=== PATIENT | male | born 1955 | race Hispanic/Latino ===

== ENCOUNTER 2017-08-26 13:45 | Inpatient (IN) | payer BC ==
[2017-08-26] MEDS ORDERED: Acetaminophen 500 MG TAB ONE (14:22)
--- NOTE | 2017-08-26 14:26 | RAD ---
EXAM: ONE VIEW CHEST: COMPARISON: 07/04/06. HISTORY: Fever, chills, and rigors. FINDINGS: Normal cardiac silhouette. The pulmonary vessels and hilum are normal. No mass. No consolidation. No pneumothorax or osseous abnormalities. IMPRESSION: No acute cardiopulmonary process. POS: [facility]
[2017-08-26 14:31] LABS: #Eosinphils 0.1 thou/uL (0.0-0.7); #Lymphocytes 1.4 thou/uL (1.20-3.40); #Monocytes 0.3 thou/uL (0.11-0.59); #Neutrophils 12.6 thou/uL (1.40-6.50); %Basophils 0.3 % (0.0-1.0); %Eosinophils 0.4 % (0.0-10.0); %Monocytes 2.1 % (0.0-10.0); Hematocrit 44.7 % (42.0-52.0); Mean Platelet Volume 8.3 fL (7.4-10.4); Red Blood Cell (RBC) Count 5.52 mill/uL (4.70-6.10); White Blood Cell (WBC) Count 14.4 thou/uL (4.8-10.8)
[2017-08-26 14:35] LABS: Bilirubin Negative (Negative); Blood, Urine Small (Negative); Glucose, Urine (Dipstick) 500 mg/dL (Negative); Ketone, Urine Negative (Negative); Nitrite Positive (Negative); Protein, Urine (Dipstick) Trace mg/dL (Neg-Trace); Urobilinogen 0.2 mg/dL (0.2-1.0)
[2017-08-26 14:49] LABS: Bacteria/HPF 4+ HPF (None Seen); Hyaline Casts/LPF 4-6 HYALINE CAST LPF (0-3 Hyaline); Squamous Epithelial None Seen HPF (0-3)
[2017-08-26 14:51] LABS: Lactic Acid - Sepsis 3.1 mmol/L (0.5-2.2)
[2017-08-26 14:55] LABS: ALT (SGPT) 21 U/L (8-55); AST (SGOT) 14 U/L (5-34); Alkaline Phosphatase 97 U/L (40-150); Anion Gap 15 mmol/L (10-20); BUN (Urea Nitrogen) 36 mg/dL (8.4-25.7); Bilirubin, Total 0.8 mg/dL (0.2-1.2); Calc. Creatinine Clearance 0 mL/min (70-130); Calcium 9.7 mg/dL (7.8-10.44); Carbon Dioxide 21 mmol/L (23-31); Chloride 101 mmol/L (98-107); Estimated GFR-MDRD 38; Globulin 4.7 g/dL (2.4-3.5); Lipase 98 U/L (8-78); Protein, Total 8.2 g/dL (5.8-8.1)
[2017-08-26] MEDS ORDERED: HYDROcodone/Acetaminophen 7.5/325 mg Tablet PO PRN (16:05)
[2017-08-26] MEDS ORDERED: Dextrose 5% in Water 1,000 ML IV PRN ×2 (16:05→16:10)
[2017-08-26] MEDS ORDERED: Dextrose 50% Abboject 50 ML SYRINGE SLOW IVP PRN ×2 (16:05→16:10)
[2017-08-26] MEDS ORDERED: Ondansetron HCl/PF 4 MG/2 ML Vial IVP PRN (16:05)
[2017-08-26] MEDS ORDERED: Zolpidem Tartrate 5 MG TAB PO PRN (16:05)
[2017-08-26] MEDS ORDERED: MORPHINE 10 MG/ML SYRINGE SLOW IVP PRN (16:09)
--- NOTE | 2017-08-26 16:48 | HP ---
PRIMARY CARE PROVIDER: Dr. Danyel Pereira; urologist, Dr. Gilmar Tran. [facility] for pyelonephritis. HISTORY OF PRESENT ILLNESS: The patient has seen Dr. Tran for the past 3 weeks. He has had some o ff and on blood in his urine pinkish color. He has a history of renal stones. He had a urine cultur e done. Two days ago, I have spoken with Dr. Tran, it is a pansensitive Klebsiella. He had a CT s can done yesterday which shows renal stones, but no renal stones in the ureters. For the past 12 yan rs, he has had fever, chills, sweats and left leg flank pain. He still has pinkish colored urine. H e states he has been feeling bad, been anorectic for 7 days. PAST MEDICAL HISTORY: Pertinent for hypertension, diabetes mellitus type 2, chronic kidney disease. CURRENT MEDICATIONS: Lisinopril 20 mg once a day, Janumet twice a day, potassium chloride 10 mEq twice a day, Trulicity 0.75 mg/0.5 mL weekly, Naprosyn 220 mg 2 b.i.d. ALLERGIES: None. PAST SURGICAL HISTORY: Lithotripsy 3 years ago. FAMILY HISTORY: Mother of cancer of the ovaries. Father of cancer of the lung. SOCIAL HISTORY: , at bedside. FULL CODE STATUS. is surrogate decision maker. Very occasional alcohol, no tobacco history. REVIEW OF SYSTEMS: GENERAL: A little lightheadedness and malaise for the past week. No true dizzin ess or fainting. EYES: No double vision, blurred vision, flashing lights. EAR, NOSE, AND THROAT: No ear pain or drainage. No nasal bleeding. No trouble swallowing. CARDIAC: No chest pain, orthop jordan or paroxysmal nocturnal dyspnea. RESPIRATIONS: Minimal shortness of breath, dry cough for 2 day s. No wheezing, asthma. GASTROINTESTINAL: No nausea, vomiting, diarrhea or constipation. No blood in his stools. GENITOURINARY: Mild dysuria, some hematuria gross. MUSCULOSKELETAL: No pain or sw elling in his arms or legs. NEUROLOGICAL: No strokes, seizures, focal weakness. PSYCHIATRIC: No a nxiety, depression. SKIN: No bruises, bleeding or rash. HEME/LYMPH: No tender or swollen lymph no jacque in axilla, inguinal or cervical area. PHYSICAL EXAMINATION: GENERAL: He is an alert, cooperative, pleasant gentleman in no distress at the present time. VITAL SIGNS: Temperature was 100 orally, room air sat was normal, blood pressure 111/67, pulse initi ally 132 down to 103 with fluids, and respirations 20-24. HEENT: Examination of his head, eyes, ears, nose, and throat reveal pupils equal, round, and reactiv e to light. Extraocular movements are intact. Sclerae white. Tympanic membranes clear. Nose is cl ear. Oral mucous membranes are wet. Throat is clear. NECK: Supple without jugular venous distention, adenopathy or thyromegaly. CHEST: Clear to auscultation and percussion. HEART: Had a regular rate and rhythm. First and second heart sounds are clear. There are no apprec iated murmurs or gallops. ABDOMEN: Soft, bowel sounds are normal. There is no hepatosplenomegaly, no mass, no rebound, no bru its. He did have some mild left flank tenderness to percussion. EXTREMITIES: Reveal no cyanosis, clubbing or edema. PULSES: Carotid, radial, femoral, and dorsalis pedis pulses intact. SKIN: Warm and dry without bruises or rash. HEME/LYMPH: No petechial or purpura lesions, no tender or swollen lymph nodes in axilla, inguinal or cervical area. NEUROLOGICAL: Cranial nerves II-XII are intact. Deep tendon reflexes symmetric. Moves all extremit ies. IMAGING AND LABORATORY DATA: Chest x-ray; no cardiomegaly, CHF or infiltrate reviewed by me. LABORATORY DATA: White count 14.4, hemoglobin 14.2, platelet count 226,000. He has an absolute neut rophilia with no bandemia. Urine too many to count white cells, 7-10 red cells, positive leukocyte e sterase and nitrite, small blood, sodium 132, potassium 5.0, CO2 21, BUN 36, creatinine 1.84, glucose 268 and 253, lactic acid positive at 3.1. ADMITTING DIAGNOSES: 1. Pyelonephritis. 2. Systemic inflammatory response syndrome. 3. Positive urine culture for Klebsiella pansensitive. 4. Lactic acidosis. 5. Nephrolithiasis. 6. Diabetes mellitus type 2. 7. Hypertension. 8. Chronic kidney disease stage 3. PLAN: 1. IV fluids. 2. Rocephin 2 grams IV q.24 hours. 3. Accu-Cheks and sliding scale. 4. Repeat lactic acid, BUN and creatinine, sodium and CBC in the morning. 5. Selected home medicines. 6. Avoid NSAIDs.
[2017-08-26 18:17] VITALS: BMI 34.4
[2017-08-26] MEDS: Sodium Chloride 0.9% 1,000 ML IV SCH (18:42)
[2017-08-26] MEDS: HumaLOG 300 UNITS/3 ML VIAL SC PRN (20:18)
[2017-08-27] MEDS: Acetaminophen 325 MG TAB PO PRN ×2 (00:27→19:35)
[2017-08-27] MEDS: Sodium Chloride 0.9% 1,000 ML IV SCH ×4 (01:13→18:20)
[2017-08-27 05:23] LABS: Anion Gap 10 mmol/L (10-20); BUN (Urea Nitrogen) 26 mg/dL (8.4-25.7); Calc. Creatinine Clearance 89 mL/min (70-130); Calcium 8.4 mg/dL (7.8-10.44); Carbon Dioxide 19 mmol/L (23-31); Chloride 109 mmol/L (98-107); Estimated GFR-MDRD 51
[2017-08-27 06:10] LABS: Band 5 % (5-11); Hematocrit 38.7 % (42.0-52.0); Neutrophil 79 % (42-75); Red Blood Cell (RBC) Count 4.76 mill/uL (4.70-6.10); White Blood Cell (WBC) Count 20.8 thou/uL (4.8-10.8)
--- NOTE | 2017-08-27 08:17 | CON ---
DATE OF CONSULTATION: 08/27/2017 HISTORY OF PRESENT ILLNESS: This is a 61-year-old Latin-Prydeinig male, who was admitted by the [facility] yesterday with febrile UTI/pyelonephritis. I had seen him in my office 3 days ago. A t that point, he had had a 6-7-day history of poor p.o. intake and decrease in appetite. No nausea o r vomiting. He had seen some gross hematuria and had noticed some increased urgency to urinate. At that point, he was having some mild left CVA tenderness. No fever, but did have a chill at home. Ny s urinalysis then showed some sugar and some blood, but no white cells and was negative for nitrites. Ordered a noncontrast CAT scan, which came back and was reviewed. He has some bilateral stones, bu t no ureteral calculi or hydronephrosis. He has some diverticulosis, but nothing to suggest divertic ulitis. Urine culture that was sent off that day had over 1,00,000 of Klebsiella pneumoniae. It was intermediately resistant to nitrofurantoin, and otherwise, was rivera sensitive across the board and at was done here at [facility]. His prior history is of urinary tract stones or uric acid stones. A bout 4 years ago, he had ESWL. He was admitted here. I think received vancomycin and Rocephin in e ER, talked with Dr. Banks, who admitted him and told him about the positive culture results. He is only on Rocephin now, which will cover this. Has not had a repeat scan done and does not need to. He is starting to feel better. He did not have any chills last night. He did not have a high temper ature last night. His white blood count is still elevated. His creatinine was 1.8 when he came in, and it is 1.4 now with a baseline one from a few years ago, I think, was 1.4 also. PAST MEDICAL HISTORY: Hypertension, diabetes, and some renal insufficiency. MEDICATIONS: Routine medicines are listed. ALLERGIES: He has no known drug allergies. PAST SURGICAL HISTORY: Not much in the way of surgical history apart from the ESWL, and I think a darya ne spur procedure. PHYSICAL EXAMINATION: ABDOMEN: His flanks are really nontender now, perhaps some slight discomfort on the left side. Abdo men is soft, obese, nontender. GENITOURINARY: Not circumcised, no phimosis, no lesions. Testicles descended without mass or tender ness. Rectal exam was not done this morning. IMPRESSION: 1. Pyelonephritis/febrile urinary tract infection with Klebsiella that is sensitive to antibiotic th at he is on. 2. Nonobstructing renal stones. 3. Uric acid stones. PLAN: At this time, would be to let him go home once he is clinically stable from the hospitalist st ward; go home on oral antibiotics, probably 10-14 days. I can see him the week after Cornelio griggs and I will get my office to set that visit up. He may want to consider shockwave therapy for the s tones that he has particularly, I think, on the right side. There was a decent size stone in the aureliano al pelvis. Otherwise, pretty small and it can probably be watched. This was discussed with the colten ent and his . All questions were answered.
--- NOTE | 2017-08-27 11:22 | PQF ---
DATE: 08-27-17 ATTN: DR. ISIDRO LEYVA Please exercise your independent, professional judgment in responding to the clarification form. Clinical indicators are provided on the bottom of this form for your review Please check appropriate box(s): [ X ] Sepsis due to: (UTI) [ ] Sepsis not due to ( UTI) [ ] Localized infection without sepsis [ ] Other diagnosis [ ] Unable to determine In addition, please specify: Present on Admission (POA): [ X ] Yes [ ] No [ ] Unable to determine For continuity of documentation, please document condition throughout progress notes and discharge summary. Thank You. CLINICAL INDICATORS - SIGNS / SYMPTOMS / LABS ER DIAGNOSIS: UROSEPSIS, DEHYDRATION H&P: PYELONEPHRITIS, SIRS, POSITIVE URINE CULTURE FOR KLEBSIELLA PANSENSITIVE , LACTIC ACIDOSIS ER DOCUMENTATION: FEVER, SUBJECTIVE, TEMP: 100.0 , TEMP ON 08-27-17: 100.1 WBC: 08-26-17: 14.4 08-27-17: 20.8 LACTIC ACID: 08-26-17: 3.1 RISK FACTORS: ER DIAGNOSIS: UROSEPSIS, DEHYDRATION CONSULT NOTE DR. APARICIO 08-26-17: HX OF ESWL, HX OF URINARY TRACT STONES, TREATMENTS: DAILY CBC (08-26-17) IVF (08-27-17) ROCEPHIN (This form is maintained as a part of the permanent medical record) 2014 [employer] All Rights Reserved [email or web address] [email or web address] Office: [phone] [facility]OSPITALDar[facility]
[2017-08-27] MEDS: HumaLOG 300 UNITS/3 ML VIAL SC PRN (11:25)
--- NOTE | 2017-08-27 15:37 | PDOC.PN ---
- Subjective Encounter Start Date: 08/27/17 Encounter Start Time: 15:35 Mr. Deutsch was seen today in follow-up of Pyelonephritis. He says he has a bit of a headache now, and doesn't feel as well now as he did this morning. He denies abdominal pain or nausea or vomiting. - Objective MAR Reviewed: Yes Vital Signs & Weight: Vital Signs (12 hours) Temp Pulse Resp BP BP Pulse Ox 08/27/17 11:29 98.4 F 83 16 168/86 H 96 08/27/17 08:00 98.1 F 81 18 149/81 H 96 08/27/17 04:00 98.2 F 73 18 124/71 97 Weight Admit Weight 254 lb 3 oz Weight 254 lb 3 oz I&O: 08/26/17 08/27/17 08/28/17 06:59 06:59 06:59 Intake Total 2507 Output Total 2049 Balance 457 Result Diagrams: 08/27/17 04:40 08/27/17 04:40 Additional Labs: Accuchecks 08/27/17 08/27/17 08/26/17 11:24 04:14 19:54 POC Glucose 221 H 188 H 321 H Phys Exam - Physical Examination HEENT: PERRLA Respiratory: no wheezing, no rales, no rhonchi, clear to auscultation bilateral Cardiovascular: RRR, no significant murmur Gastrointestinal: soft, non-tender, positive bowel sounds Musculoskeletal: no edema Dx/Plan (1) Pyelonephritis Code(s): N12 - TUBULO-INTERSTITIAL NEPHRITIS, NOT SPCF ACUTE OR CHRONIC Status: Acute (2) Nephrolithiasis Status: Acute (3) Diabetes mellitus type 2 in obese Code(s): E11.69 - TYPE 2 DIABETES MELLITUS WITH OTHER SPECIFIED COMPLICATION; E66.9 - OBESITY, UNSPECIFIED Status: Acute (4) Hypertension Code(s): I10 - ESSENTIAL (PRIMARY) HYPERTENSION Status: Acute - Plan * UTI and Pyelophritis- urine cultures from 08/24 are positive for Klebsiella which was Leija-sensitive. * Urine culture from this admission is still pending- most likely to be the same organism * Will keep in the hospital overnight to await cultures * HTN- re-start his blood pressure medication tomorrow, to allow adequate re- hydration * DM- blood glucose is elevated- re-start Januvia, and continue SSI
[2017-08-27] MEDS: cefTRIAXone\\ROCEPHIN 2 GM in Sodium Chloride 0.9% 100 ML IVPB SCH (15:53)
[2017-08-27] MEDS: Alogliptin Benzoate 6.25 MG TABLET PO SCH (16:48)
[2017-08-27] MEDS: metFORMIN 500 MG TAB PO SCH (16:49)
[2017-08-28] MEDS: Sodium Chloride 0.9% 1,000 ML IV SCH ×4 (04:18→20:49)
[2017-08-28 04:23] LABS: #Eosinphils 0.2 thou/uL (0.0-0.7); #Lymphocytes 2.4 thou/uL (1.20-3.40); #Monocytes 1.4 thou/uL (0.11-0.59); #Neutrophils 15.6 thou/uL (1.40-6.50); %Basophils 0.2 % (0.0-1.0); %Eosinophils 0.8 % (0.0-10.0); %Lymphocytes 12.2 % (21.0-51.0); %Monocytes 7.2 % (0.0-10.0); Hematocrit 39.1 % (42.0-52.0); Mean Platelet Volume 7.9 fL (7.4-10.4); White Blood Cell (WBC) Count 19.6 thou/uL (4.8-10.8)
[2017-08-28 04:41] LABS: Lactic Acid - Sepsis 1.6 mmol/L (0.5-2.2)
[2017-08-28] MEDS: metFORMIN 500 MG TAB PO SCH ×2 (07:58→16:56)
[2017-08-28] MEDS: Alogliptin Benzoate 6.25 MG TABLET PO SCH ×2 (07:58→16:55)
--- NOTE | 2017-08-28 09:09 | PDOC.PN ---
- Subjective Encounter Start Date: 08/28/17 Encounter Start Time: 09:07 Mr. Deutsch was seen today in follow-up of Pyelonephritis. He says he is feeling ok. He denies abdominal pain or nausea. - Objective MAR Reviewed: Yes Vital Signs & Weight: Vital Signs (12 hours) Temp Pulse Resp BP Pulse Ox 08/28/17 08:00 98.8 F 78 20 110/68 96 08/28/17 04:21 98.1 F 08/28/17 00:00 98.1 F 08/27/17 21:29 98.4 F Weight Admit Weight 254 lb 3 oz Weight 254 lb 3 oz I&O: 08/27/17 08/28/17 08/29/17 06:59 06:59 06:59 Intake Total 2506 2474 Output Total 2049 1999 Balance 457 108 Result Diagrams: 08/28/17 04:02 08/27/17 04:40 Additional Labs: Accuchecks 08/28/17 08/27/17 08/27/17 04:25 20:06 16:14 POC Glucose 161 H 218 H 259 H 08/27/17 11:24 POC Glucose 221 H Phys Exam - Physical Examination HEENT: PERRLA Respiratory: no wheezing, no rales, no rhonchi, clear to auscultation bilateral Cardiovascular: RRR, no significant murmur Gastrointestinal: soft, non-tender, positive bowel sounds Musculoskeletal: no edema Dx/Plan (1) Pyelonephritis Code(s): N12 - TUBULO-INTERSTITIAL NEPHRITIS, NOT SPCF ACUTE OR CHRONIC Status: Acute (2) Nephrolithiasis Status: Acute (3) Diabetes mellitus type 2 in obese Code(s): E11.69 - TYPE 2 DIABETES MELLITUS WITH OTHER SPECIFIED COMPLICATION; E66.9 - OBESITY, UNSPECIFIED Status: Acute (4) Hypertension Code(s): I10 - ESSENTIAL (PRIMARY) HYPERTENSION Status: Acute - Plan * Pyelonephritis- He had some fever yesterday evening, and his WBC count is still quit elevated * Will add Levaquin, and repeat the CBC in the AM and monitor his temp curve * HTN- will re-start Lisinopril * DM- blood glucose is slightly elevated but stable- continue Januvia/ Metformin and SSI
[2017-08-28] MEDS: Lisinopril 20 MG TAB PO SCH (09:59)
[2017-08-28] MEDS: cefTRIAXone\\ROCEPHIN 2 GM in Sodium Chloride 0.9% 100 ML IVPB SCH (15:01)
[2017-08-29] MEDS: Sodium Chloride 0.9% 1,000 ML IV SCH ×2 (02:17→08:19)
[2017-08-29 04:42] LABS: #Basophils 0.1 thou/uL (0.0-0.2); #Eosinphils 0.1 thou/uL (0.0-0.7); #Lymphocytes 2.1 thou/uL (1.20-3.40); #Monocytes 0.9 thou/uL (0.11-0.59); #Neutrophils 11.1 thou/uL (1.40-6.50); %Basophils 0.5 % (0.0-1.0); %Eosinophils 0.7 % (0.0-10.0); %Lymphocytes 14.4 % (21.0-51.0); %Monocytes 6.5 % (0.0-10.0); Hematocrit 35.1 % (42.0-52.0); Mean Platelet Volume 8.2 fL (7.4-10.4); White Blood Cell (WBC) Count 14.3 thou/uL (4.8-10.8)
[2017-08-29 04:46] LABS: Anion Gap 10 mmol/L (10-20); BUN (Urea Nitrogen) 16 mg/dL (8.4-25.7); Calc. Creatinine Clearance 105 mL/min (70-130); Calcium 8.4 mg/dL (7.8-10.44); Carbon Dioxide 18 mmol/L (23-31); Chloride 107 mmol/L (98-107); Estimated GFR-MDRD 62
[2017-08-29 04:52] VITALS: TEMP 98.1
--- NOTE | 2017-08-29 07:31 | PDOC.PN ---
- Subjective Encounter Start Date: 08/29/17 Encounter Start Time: 07:30 Mr. Deutsch was seen today in follow-up of Pyelonephritis. He does not have any complaints. He is feeling better. - Objective MAR Reviewed: Yes Vital Signs & Weight: Vital Signs (12 hours) Temp Pulse Resp BP Pulse Ox 08/29/17 04:51 98.1 F 08/29/17 02:21 98.3 F 08/29/17 00:50 99.6 F 08/28/17 20:00 98.4 F 93 18 126/74 97 Weight Admit Weight 254 lb 3 oz Weight 254 lb 3 oz I&O: 08/28/17 08/29/17 08/30/17 06:59 06:59 06:59 Intake Total 2475 4700 Output Total 2000 1500 Balance 475 3200 Result Diagrams: 08/29/17 04:19 08/29/17 04:19 Additional Labs: Accuchecks 08/29/17 08/28/17 08/28/17 04:51 20:43 16:10 POC Glucose 173 H 202 H 175 H 08/28/17 10:54 POC Glucose 227 H Phys Exam - Physical Examination HEENT: PERRLA Respiratory: no wheezing, no rales, no rhonchi, clear to auscultation bilateral Cardiovascular: RRR, no significant murmur Gastrointestinal: soft, non-tender, positive bowel sounds Musculoskeletal: no edema Dx/Plan (1) Pyelonephritis Code(s): N12 - TUBULO-INTERSTITIAL NEPHRITIS, NOT SPCF ACUTE OR CHRONIC Status: Acute (2) Nephrolithiasis Status: Acute (3) Diabetes mellitus type 2 in obese Code(s): E11.69 - TYPE 2 DIABETES MELLITUS WITH OTHER SPECIFIED COMPLICATION; E66.9 - OBESITY, UNSPECIFIED Status: Acute (4) Hypertension Code(s): I10 - ESSENTIAL (PRIMARY) HYPERTENSION Status: Acute - Plan * Pyelonephritis- improving * Patient is stable for discharge home today on Levaquin..
--- NOTE | 2017-08-29 07:54 | DIS ---
DATE OF ADMISSION: 08/26/2017 DATE OF DISCHARGE: 08/29/2017 PRIMARY CARE PHYSICIAN: Danyel Pereira M.D. DISCHARGE DISPOSITION: Home. PRIMARY DISCHARGE DIAGNOSES: 1. Pyelonephritis. 2. Nephrolithiasis. 3. Hypertension. 4. Diabetes mellitus. 5. Obesity. DISCHARGE MEDICATIONS: Levaquin 500 mg p.o. daily for 10 days, Trulicity 0.75 mcg every 7 days, anna nopril 20 mg daily, Naprosyn 220 mg twice a day, potassium citrate 10 mg twice a day, and Janumet 50/ 1000 mg twice a day. CODE STATUS: FULL CODE. ALLERGIES: No known drug allergies. HOSPITAL COURSE: Mr. Deutsch is a pleasant 61-year-old gentleman who was admitted after experiencing some hematuria as well as subjective fever and chills and left flank pain. He was found to have pyel onephritis as well as some nonobstructing renal stones. He was seen by Dr. Tran in the hospital an d urine cultures grew Klebsiella, which was rivera sensitive. He was treated with Rocephin and then tra nsitioned to Levaquin and once he was afebrile for 24 hours and his white count was declining and his symptoms had resolved, he was able to be discharged home and to have close followup with Dr. Tran who will plan to deal with stones in the outpatient setting and also to follow up with his primary ca re physician in 1-2 weeks.
[2017-08-29] MEDS: Alogliptin Benzoate 6.25 MG TABLET PO SCH (07:56)
[2017-08-29] MEDS: metFORMIN 500 MG TAB PO SCH (07:57)
[2017-08-29] MEDS: Lisinopril 20 MG TAB PO SCH (07:57)
[2017-08-29 08:34] VITALS: BP 121/77
[2017-08-29] MEDS: cefTRIAXone\\ROCEPHIN 2 GM in Sodium Chloride 0.9% 100 ML IVPB SCH (13:00)
== END 2017-08-29 14:15 | disposition home or self-care (01) | DRG 872 ==
LOC: ERS 13:45 → T4-A 17:54
PROVIDERS: ADMIT Internal Medicine; ATTEND Internal Medicine
DX: A41.9 Sepsis, unspecified organism (principal); E87.2 Acidosis; E11.22 Type 2 diabetes mellitus with diabetic chronic kidney disease; N18.3 Chronic kidney disease, stage 3 (moderate); N10 Acute pyelonephritis; B96.1 Klebsiella pneumoniae [K. pneumoniae] as the cause of diseases classified elsewhere; N20.0 Calculus of kidney; I12.9 Hypertensive chronic kidney disease with stage 1 through stage 4 chronic kidney disease, or unspecified chronic kidney disease; Z79.4 Long term (current) use of insulin; E66.9 Obesity, unspecified; E86.0 Dehydration; Z68.34 Body mass index [BMI] 34.0-34.9, adult
CPT/HCPCS: 36415; 36416; 71010; 80048; 80053; 81003; 81015; 83605; 83690; 85025; 87040; 87077; 87086; 87186; 96361; 96365; 96368; J0696; J3370; J7050

== ENCOUNTER 2017-09-13 14:21 | Outpatient (CLI) | payer BC ==
[2017-09-13 16:14] LABS: Hematocrit 40.8 % (42.0-52.0); Mean Platelet Volume 8.2 fL (7.4-10.4); White Blood Cell (WBC) Count 6.7 thou/uL (4.8-10.8)
[2017-09-13 16:16] LABS: PTT 31.4 SEC (22.9-36.1); Prothrombin Time 13.6 SEC (12.0-14.7)
[2017-09-13 16:25] LABS: Anion Gap 15 mmol/L (10-20); BUN (Urea Nitrogen) 22 mg/dL (8.4-25.7); Calc. Creatinine Clearance 0 mL/min (70-130); Calcium 9.7 mg/dL (7.8-10.44); Carbon Dioxide 24 mmol/L (23-31); Chloride 102 mmol/L (98-107); Estimated GFR-MDRD 42
[2017-09-13 16:41] LABS: EPI Status Message No Message; Hematocrit 40.8 % (42.0-52.0)
--- NOTE | 2017-09-13 18:10 | EKG ---
Test Reason : Blood Pressure : / mmHG Vent. Rate : 061 BPM Atrial Rate : 061 BPM P-R Int : 152 ms QRS Dur : 088 ms QT Int : 394 ms P-R-T Axes : 021 -01 -08 degrees QTc Int : 396 ms Normal sinus rhythm Normal ECG When compared with ECG of 01-DEC-2016 07:28, No significant change was found Confirmed by BHAKTI ODELL ([id number]) on 09/13/2017 6:09:56 PM Referred By: RAFFY Confirmed By:BHAKTI ODELL
== END 2017-09-13 14:22 | disposition home or self-care (01) ==
LOC: LABBT 14:21
PROVIDERS: ATTEND Urology
DX: Z01.812 Encounter for preprocedural laboratory examination (principal); N20.0 Calculus of kidney
CPT/HCPCS: 80048; 85027; 85576; 85610; 85730; 93005; 93010

== ENCOUNTER 2017-09-15 07:30 | Day surgery (SDC) | payer BC ==
[2017-09-13 14:51] VITALS: BMI 34.4
--- NOTE | 2017-09-15 09:36 | RAD ---
RADIOGRAPH ABDOMEN 1 VIEW: DATE: 09/15/17. HISTORY: A 61-year-old male with right renal calculus. COMPARISON: CT of 08/25/2017 from [facility]. FINDINGS: There are 2 calcific densities at the lateral aspect of the right pelvis, which are ovoid, each measu ring approximately 6 x 4 mm, abutting each other, one superior to the other. These represent phlebol iths, as demonstrated on the CT of 08/25/2017. The calculus at the right renal pelvis on that prior CT is not visible on this KUB. Perhaps that is a uric acid stone. No other focal calcifications are visualized. Bowel gas pattern is normal. IMPRESSION: No calculus identified. POS: [facility]
[2017-09-15] MEDS ORDERED: Fentanyl 100 MCG/2 ML VIAL ONE (11:54)
[2017-09-15] MEDS ORDERED: cefTRIAXone\\ROCEPHIN 2 GM in Sodium Chloride 0.9% 100 ML IVPB ONE (12:00)
[2017-09-15] MEDS ORDERED: Iothalamate Meglumine 60% 50 ML VIAL FS ONE (12:20)
--- NOTE | 2017-09-15 14:32 | OP ---
DATE OF SURGERY: 09/15/2017 PREOPERATIVE DIAGNOSIS: Right renal pelvic stone, radiolucent. POSTOPERATIVE DIAGNOSIS: Right renal pelvic stone, radiolucent. PROCEDURE PERFORMED: Cystoscopy, right retrograde, right extracorporeal shock wave lithotripsy, righ t stent. SURGEON: Dr. Gilmar Tran ANESTHETIC: General. ESTIMATED BLOOD LOSS: Minimal. FINDINGS: There is over 1 cm size stone in the right renal pelvis and was radiolucent. DRAINS PLACED: 4.6 Salvadorean x 26 cm double-J stent with string attached. FINDINGS: There is a stone that was radiolucent but could easily be seen with the retrograde contras t that was over 1 cm in size that was treated with 2500 shocks at maximum kV level of 5. It appeared to fragment well. At the end of the procedure, because of the size of the stone, a stent was placed . OPERATIVE TECHNIQUE: After obtaining written and verbal consent from the patient after receiving IV Rocephin, he was taken to the operating suite. He was placed in the supine position on the treatment table. PlexiPulses were placed on his lower extremities and turned on. He was given a general anes thetic and oral obturator intubation. He was placed in the dorsal lithotomy position and sterilely p repped and draped. Cystoscopy was performed with a 22-Salvadorean sheath. This was well lubricated and p assed under direct vision through the male urethra into the urinary bladder with aid of a 30-degree l ens and video camera and monitor. The bladder was filled and emptied a number of times and examined with both 30 and 70-degree lens. No evidence of tumor, foreign body, or stone. He had a wide calibe r stricture of the bulb that was easily passed with the scope. The right ureteral orifice was cannul ated with a 5 Salvadorean Pollack catheter that had been flushed with contrast. It was placed up the uret er, contrast was injected, revealing a round filling defect over 1 cm in size in the renal pelvis. W e positioned the open-ended catheter just distal to the ureteropelvic junction, draining the bladder, removing the scope, passing a Danielson catheter, inflating the balloon and then securing the open-ended catheter. He was then returned to the supine position and we could inject contrast through the open -ended catheter. He was coupled to the lithotripter unit and the stone was placed in treatment focal point. Shockwave therapy was commenced. Fluoroscopy was used intermittently and contrast was reinj ected to the distal end of the open-ended catheter, it was necessary to outline the stone in its frag ments, it did appear to fragment well, although we could not see the size of any of the fragments per se, it certainly changed its configuration dramatically. Because of the size of the stone, we decid ed he would do best with the stent. After 2500 shocks, he was then returned to the dorsal lithotomy position, we sterilely prepped and draped. The guidewire was fed through the open-ended catheter and the open-ended catheter was discarded. The guidewire was backloaded through the cystoscope. We inj ected contrast through new open-ended catheter up to fill out the collecting system and then over the wire placed a stent, pushing up into place with aid of a pusher, so its proximal end coiled in the r enal pelvis and its distal end coiled in the bladder at the end of the procedure. There were a numbe r of filling defects in the renal pelvis. Some of them stone fragments, some of them blood clot. At this point, the bladder was drained, the instruments were removed. The string had been left planning aide d to distal end of the stent. He was awakened, extubated, and taken by sonyaer to the recovery shanna hancock
[2017-09-15] MEDS ORDERED: ePHEDrine/0.9% NaCl/PF SYRINGE 50 mg/10 ml ONE (15:27)
[2017-09-15] MEDS ORDERED: PHENYLEPHRINE-NS 100 MCG/ML 10 ML SYRINGE ONE (15:27)
[2017-09-15] MEDS ORDERED: Lidocaine 1% PF 5 ML VIAL ONE (15:27)
[2017-09-15] MEDS ORDERED: Dexamethasone 20 MG/5 ML VIAL ONE (15:27)
[2017-09-15] MEDS ORDERED: Propofol 200 MG/20 ML VIAL ONE (15:27)
[2017-09-15] MEDS ORDERED: Metoclopramide HCl 10 MG/2 ML VIAL ONE (15:27)
[2017-09-15] MEDS ORDERED: Ondansetron HCl/PF 4 MG/2 ML Vial ONE (15:27)
[2017-09-15] MEDS ORDERED: Acetaminophen/Codeine 30-300mg Tablet ONE (16:00)
== END 2017-09-15 16:45 | disposition home or self-care (01) ==
LOC: SDC 07:30
PROVIDERS: ATTEND Urology
PROC: 0T768DZ Dilation of Right Ureter with Intraluminal Device, Via Natural or Artificial Opening Endoscopic (ICD-10-PCS; principal; 2017-09-15)
PROC: 0TF3XZZ Fragmentation in Right Kidney Pelvis, External Approach (ICD-10-PCS; principal; 2017-09-15)
DX: N20.0 Calculus of kidney (principal)
CPT/HCPCS: 74000; C1758; J0131; J0696; J1100; J2001; J2405; J2704; J2765; J3010; J7050; Q9961

== ENCOUNTER 2020-03-18 06:03 | Outpatient (CLI) | payer BC, OTHER ==
[2020-03-18 18:11] LABS: Hemoglobin 15.6 g/dL (14.0-18.0); Mean Corpuscular HGB CONC 33.3 g/dL (32.0-36.0); Mean Corpuscular Hemoglobin 28.8 pg (27.0-31.0); Mean Corpuscular Volume 86.3 fL (78.0-98.0); Mean Platelet Volume 10.1 fL (7.4-10.4); Platelet Count 159 thou/uL (130-400); RBC Distribution Width 13.9 % (11.5-14.5); Red Blood Cell (RBC) Count 5.43 mill/uL (4.70-6.10); White Blood Cell (WBC) Count 7.3 thou/uL (4.8-10.8)
[2020-03-18 18:14] LABS: PTT 29.5 sec (22.9-36.1)
[2020-03-18 18:23] LABS: Anion Gap 13 mmol/L (10-20); BUN (Urea Nitrogen) 28 mg/dL (8.4-25.7); Calc. Creatinine Clearance 0 mL/min (70-130); Calcium 9.9 mg/dL (7.8-10.44); Carbon Dioxide 24 mmol/L (23-31); Chloride 106 mmol/L (98-107); Estimated GFR-MDRD 43; Glucose 126 mg/dL (80-115); Potassium 4.7 mmol/L (3.5-5.1); Sodium 138 mmol/L (136-145)
[2020-03-19 13:58] LABS: SARS-CoV-2 MS2 Positive; SARS-CoV-2 N Gene Negative; SARS-CoV-2 S Gene Negative; SARS-CoV-2 orf1ab Negative
[2020-03-20 06:40] LABS: Platelet Count 144 thou/uL (130-400)
[2020-03-20 06:58] LABS: EPI 113 SEC (67-199)
== END 2020-03-18 06:04 | disposition home or self-care (01) ==
LOC: LABBT 06:03
PROVIDERS: ATTEND Urology
DX: Z01.812 Encounter for preprocedural laboratory examination (principal); Z11.59 Encounter for screening for other viral diseases; N20.0 Calculus of kidney
CPT/HCPCS: 80048; 85027; 85576; 85610; 85730; 87635; U0003

== ENCOUNTER 2020-03-20 05:51 | Day surgery (SDC) | payer OTHER ==
[2020-03-18 14:32] VITALS: BMI 34.5
[2020-03-20] MEDS ORDERED: Iopamidol 50 ML FS ONE (06:33)
[2020-03-20] MEDS ORDERED: Fentanyl 100 MCG/2 ML VIAL ONE (06:48)
--- NOTE | 2020-03-20 09:53 | OP ---
DATE OF PROCEDURE: 03/20/2020 PREOPERATIVE DIAGNOSIS: Left renal stones (uric acid). POSTOPERATIVE DIAGNOSES: 1. Left renal stones (uric acid). 2. Urethral stricture disease, easily passed with a 22-Malaysian scope and a guidewire. PROCEDURES PERFORMED: 1. Cystoscopy. 2. Left retrograde pyelography. 3. Left extracorporeal shockwave lithotripsy. ANESTHETIC: General. ESTIMATED BLOOD LOSS: Not recorded. FINDINGS: He had 3 areas of filling defects, corresponding of a stone, seen on ultrasound, 1 in the upper maribeth, 1 in the mid calyx/renal pelvic region, 1 in the lower calyceal system. In the same order, they were treated with 1000 and 1500 shocks for a total of 2500 shocks at level 4. They did appear to fragment well based on how they broke up when we would reinject. Stent was not left indwelling. DESCRIPTION OF PROCEDURE: After obtaining written and verbal consent from the patient, after receiving IV antibiotics, after documenting normal preoperative blood work, he was taken to the operating suite. He was placed in the supine position on the treatment table. PlexiPulses were placed on his lower extremities and turned on. He was given a general anesthetic and oral intubation. He was placed in the dorsal lithotomy position. He was sterilely prepped and draped for the above procedure. The scope was passed through the male urethra, well lubricated. There were some areas of stricture along the anterior urethra, that were easily passed with the scope in the bulb. There was 1 that was short, but a little tighter, and a wire was fed across through this before passing the scope. There was a moderately enlarged prostate gland. The bladder showed no tumor, foreign body, or stone. The ureteral orifices in normal position. The guidewire was then fed up the left ureter a few centimeter and then a Pollack catheter advanced over this. The Pollack catheter was then advanced up to the region of the expected proximal ureter/renal pelvis and a C-arm was used to look at this area as we injected a small amount of contrast. Once we felt that this was in a good position in the area of the renal pelvis and then the bladder was drained. The instruments removed, leaving the stent in place. A 16-Malaysian Danielson catheter was then placed in and the balloon inflated and then the Pollack catheter was secured to it with a silk tie and contrast of 60 mL syringe was left attached to the Pollack catheter. He was returned to the supine position and he was positioned for shockwave lithotripsy and coupled to the lithotripsy unit. We started at the upper pole filling defect and treated this with 1000 shocks. Initially started at a low kV after couple 100 shocks, a 5-minute pause was given, then we increased the kV to level 4. We then repositioned for the 2nd 1000 shocks and then for the 3rd. At the end of the procedure, he had the Danielson catheter and the stent removed. He was awakened. He was extubated and taken by kei to recovery room. Job ID: [id number]
[2020-03-20] MEDS ORDERED: Dexamethasone 20 MG/5 ML VIAL ONE (10:41)
[2020-03-20] MEDS ORDERED: PHENYLEPHRINE-NS 100 MCG/ML 10 ML SYRINGE ONE (10:41)
[2020-03-20] MEDS ORDERED: Lidocaine 1% PF 5 ML VIAL ONE (10:41)
[2020-03-20] MEDS ORDERED: EPHEDRINE 25 MG/5 ML SYRINGE ONE (10:41)
[2020-03-20] MEDS ORDERED: Ondansetron PF 4 MG/2 ML Vial ONE (10:41)
[2020-03-20] MEDS ORDERED: Rocuronium Bromide 10 MG/ML (10ML VIAL) ONE (10:41)
[2020-03-20] MEDS ORDERED: PROPOFOL 200 MG/20 ML VIAL ONE (10:41)
[2020-03-20] MEDS ORDERED: Glycopyrrolate 0.2 MG/ML 5 ML SYRINGE ONE (10:41)
--- NOTE | 2020-03-20 15:46 | EKG ---
Test Reason : PREOP Blood Pressure : / mmHG Vent. Rate : 054 BPM Atrial Rate : 054 BPM P-R Int : 146 ms QRS Dur : 094 ms QT Int : 418 ms P-R-T Axes : 032 -02 -04 degrees QTc Int : 396 ms Sinus bradycardia Nonspecific T wave abnormality Otherwise normal ECG Confirmed by JUAN GARCIA ([id number]) on 03/20/2020 3:46:17 PM Referred By: MADDY Confirmed By:JUAN GARCIA
== END 2020-03-20 11:25 | disposition home or self-care (01) ==
LOC: SDC 05:51
PROVIDERS: ATTEND Urology
PROC: 0TF4XZZ Fragmentation in Left Kidney Pelvis, External Approach (ICD-10-PCS; principal; 2020-03-20)
DX: N20.0 Calculus of kidney (principal); Z79.899 Other long term (current) drug therapy
CPT/HCPCS: 93005; 93010; J0690; J1100; J2001; J2405; J2704; J3010; Q9967

== ENCOUNTER 2025-05-16 09:23 | Outpatient (CLI) | payer OTHER ==
[2025-05-16 11:52] LABS: #Basophils 0.07 10x3/uL (0.0-0.2); #Eosinophils 0.40 10x3/uL (0.0-0.7); #Monocytes 0.61 10x3/uL (0.11-0.59); #Neutrophils 4.25 10x3/uL (1.40-6.50); %Basophils 0.9 % (0.0-1.0); %Eosinophils 5.0 % (0.0-10.0); %Lymphocytes 32.6 % (21.0-51.0); %Monocytes 7.7 % (0.0-10.0); %Neutrophils 53.5 % (42.0-75.0); Hematocrit 46.0 % (42.0-52.0); Hemoglobin 15.2 g/dL (14.0-18.0); Mean Corpuscular Hemoglobin 29.0 pg (27.0-31.0); Mean Corpuscular Volume 87.6 fL (78.0-98.0); Platelet Count 164 10x3/uL (130-400); Red Blood Cell (RBC) Count 5.25 mill/uL (4.70-6.10); White Blood Cell (WBC) Count 7.94 10x3/uL (4.8-10.8)
[2025-05-16 12:49] LABS: Anion Gap 15 mmol/L (10-20); BUN (Urea Nitrogen) 19 mg/dL (8.4-25.7); Calc. Creatinine Clearance 0 mL/min (70-130); Calcium 9.8 mg/dL (7.8-10.44); Carbon Dioxide 20 mmol/L (23-31); Chloride 105 mmol/L (98-107); Glucose 125 mg/dL (80-115); Potassium 4.2 mmol/L (3.5-5.1); Sodium 136 mmol/L (136-145)
== END 2025-05-16 09:24 | disposition home or self-care (01) ==
LOC: LABBT 09:23
PROVIDERS: ATTEND Surgery
DX: Z01.818 Encounter for other preprocedural examination (principal); C20 Malignant neoplasm of rectum
CPT/HCPCS: 80048; 82378; 83036; 85025; 93005; 93010

== ENCOUNTER 2025-05-16 09:30 | Inpatient (IN) | payer OTHER ==
[2025-05-16 10:07] VITALS: BMI 32.1
[2025-05-21] MEDS ORDERED: Acetaminophen 325 MG TAB ONE (11:46)
[2025-05-21] MEDS ORDERED: metroNIDAZOLE 500 MG (100 mL) BAG ONE (11:46)
[2025-05-21] MEDS ORDERED: CEFAZOLIN 2 GM VIAL ONE (11:46)
[2025-05-21] MEDS ORDERED: Heparin 5,000 UNITS/ML VIAL ONE (11:48)
[2025-05-21] MEDS ORDERED: PROPOFOL 20 ML ONE ×2 (13:03→13:52)
[2025-05-21] MEDS ORDERED: Lidocaine 1% PF 5 ML VIAL ONE ×2 (13:04→13:54)
[2025-05-21] MEDS ORDERED: Rocuronium Bromide 10 MG/ML (10ML VIAL) ONE ×2 (13:04→13:54)
[2025-05-21] MEDS ORDERED: fentaNYL PF 100 MCG/2 ML SYRINGE ONE (13:52)
[2025-05-21] MEDS ORDERED: Bupivacaine 0.25% HCL 30 ML VIAL ONE (14:18)
[2025-05-21] MEDS ORDERED: Glycopyrrolate 0.2 MG/ML 5 ML SYRINGE ONE (15:02)
[2025-05-21] MEDS ORDERED: Ondansetron PF 4 MG/2 ML Vial ONE (15:46)
[2025-05-21] MEDS ORDERED: HYDROmorphone 2 MG/ML VIAL ONE (15:58)
[2025-05-21] MEDS ORDERED: PACU-Morphine 4MG/ML VIAL SLOW IVP PRN (15:58)
[2025-05-21] MEDS ORDERED: HYDROmorphone 0.5 MG/0.5 ML SYR SLOW IVP PRN (15:58)
[2025-05-21] MEDS ORDERED: SUGAMMADEX SODIUM 200 MG/2 ML VIAL ONE (16:34)
[2025-05-21] MEDS ORDERED: Ondansetron PF 4 MG/2 ML Vial IVP PRN (16:46)
[2025-05-21] MEDS ORDERED: hydrALAZINE 20 MG/ML VIAL SLOW IVP PRN (16:46)
[2025-05-21] MEDS ORDERED: HYDROcodone/Acetaminophen 5/325 mg Tablet PO PRN (16:50)
[2025-05-21] MEDS: metFORMIN 500 MG TAB PO SCH (21:19)
[2025-05-21] MEDS: HYDROcodone/Acetaminophen 5/325 mg Tablet PO PRN (21:21)
[2025-05-22 05:27] LABS: #Basophils Less than 0.03 10x3/uL (0.0-0.2); #Eosinophils Less than 0.03 10x3/uL (0.0-0.7); #Monocytes 0.68 10x3/uL (0.11-0.59); #Neutrophils 9.17 10x3/uL (1.40-6.50); %Basophils 0.1 % (0.0-1.0); %Eosinophils 0.0 % (0.0-10.0); %Lymphocytes 6.7 % (21.0-51.0); %Monocytes 6.4 % (0.0-10.0); %Neutrophils 86.3 % (42.0-75.0); Hematocrit 45.2 % (42.0-52.0); Hemoglobin 14.8 g/dL (14.0-18.0); Mean Corpuscular Hemoglobin 28.9 pg (27.0-31.0); Mean Corpuscular Volume 88.3 fL (78.0-98.0); Platelet Count 140 10x3/uL (130-400); Red Blood Cell (RBC) Count 5.12 mill/uL (4.70-6.10); White Blood Cell (WBC) Count 10.62 10x3/uL (4.8-10.8)
[2025-05-22 05:44] LABS: Anion Gap 14 mmol/L (10-20); BUN (Urea Nitrogen) 28 mg/dL (8.4-25.7); Calc. Creatinine Clearance 60 mL/min (70-130); Calcium 9.1 mg/dL (7.8-10.44); Carbon Dioxide 20 mmol/L (23-31); Chloride 107 mmol/L (98-107); Glucose 214 mg/dL (80-115); Potassium 4.7 mmol/L (3.5-5.1); Sodium 136 mmol/L (136-145)
[2025-05-22] MEDS: Enoxaparin 40 MG (0.4 mL) SYRINGE SC SCH (08:22)
[2025-05-22] MEDS: Lisinopril 20 MG TAB PO SCH (08:22)
[2025-05-22] MEDS ORDERED: Acetaminophen 325 MG TAB PO PRN (16:47)
[2025-05-23 06:40] LABS: Hematocrit 43.3 % (42.0-52.0); Hemoglobin 14.0 g/dL (14.0-18.0); Mean Corpuscular Hemoglobin 28.9 pg (27.0-31.0); Mean Corpuscular Volume 89.5 fL (78.0-98.0); Platelet Count 130 10x3/uL (130-400); Red Blood Cell (RBC) Count 4.84 mill/uL (4.70-6.10); White Blood Cell (WBC) Count 10.15 10x3/uL (4.8-10.8)
[2025-05-23 06:46] LABS: Anion Gap 14 mmol/L (10-20); BUN (Urea Nitrogen) 36 mg/dL (8.4-25.7); Calc. Creatinine Clearance 69 mL/min (70-130); Calcium 8.6 mg/dL (7.8-10.44); Carbon Dioxide 22 mmol/L (23-31); Chloride 105 mmol/L (98-107); Glucose 144 mg/dL (80-115); Potassium 4.9 mmol/L (3.5-5.1); Sodium 136 mmol/L (136-145)
[2025-05-23] MEDS: Milk Of Magnesia 30 ML UDCUP PO SCH (09:13)
[2025-05-23 10:34] VITALS: TEMP 98.1
[2025-05-23 16:01] VITALS: BP 105/63
== END 2025-05-23 17:41 | disposition home or self-care (01) | DRG 334 ==
LOC: EDSTATUS 05-21 09:30 → SURG A 05-21 10:47
PROVIDERS: ADMIT Surgery; ATTEND Surgery
PROC: 0DBP4ZZ Excision of Rectum, Percutaneous Endoscopic Approach (ICD-10-PCS; principal; 2025-05-21)
PROC: 8E0W3CZ Robotic Assisted Procedure of Trunk Region, Percutaneous Approach (ICD-10-PCS; 2025-05-21)
PROC: 3E03329 Introduction of Other Anti-infective into Peripheral Vein, Percutaneous Approach (ICD-10-PCS; 2025-05-21)
DX: C20 Malignant neoplasm of rectum (principal); E11.9 Type 2 diabetes mellitus without complications; Z79.899 Other long term (current) drug therapy; Z79.84 Long term (current) use of oral hypoglycemic drugs
CPT/HCPCS: 36415; 36416; 80048; 85025; 85027; 88309; 88341; 88342; J0169; J0665; J1100; J1171; J1644; J1650; J1815; J2270; J2405; J2704; J7030

== ENCOUNTER 2025-06-12 12:36 | Outpatient (CLI) | payer OTHER | END 2025-06-12 12:37 | disposition home or self-care (01) | LOC: SCSMRI 12:36 | PROVIDERS: ATTEND Radiology Radiation Oncology | DX: C20 Malignant neoplasm of rectum (principal) | CPT/HCPCS: 72197 ==